=== PATIENT | male | born 2000 | race Caucasian/White ===

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

== ENCOUNTER → 2020-03-24 09:32 | Outpatient (CLI) | payer OTHER, SELFPAY | PROVIDERS: Family Provider Pediatrics; PCP Pediatrics; Visit Provider Physician Assistant | DX: R21 Rash and other nonspecific skin eruption (principal) | CPT/HCPCS: 87070; 87205 ==

== ENCOUNTER 2021-01-03 17:02 | Emergency (ER) | payer OTHER, SELFPAY ==
[2021-01-03 17:42] VITALS: BP 135/90; PULSE 92; RESP 18; TEMP 37.1; O2SAT 98; BMI 23.0
--- NOTE | 2021-01-03 18:08 | ED_ITS ---
HPI - Extremity Injury (Upper) General Chief Complaint: Extremity Injury, Upper Stated Complaint: right hand ring finger injury Time Seen by Provider: 01/03/21 18:02 History of Present Illness HPI narrative: 20M nonsmoker without significant medical history presents with an injury to his right hand earlier today. He was using a hand grinder at home and accidentally injured his finger. He was not wearing gloves. His tetanus is up-to-date. He denies any numbness or tingling or other injuries. He is otherwise well and free of complaint Related Data Previous Rx's Medication Instructions Recorded clotrimazole 1 % topical cream 1 applictn TOP BID 28 Days #30 gram 03/15/20 mupirocin 2 % topical ointment 1 applic TOP BID #30 gram 03/15/20 hydroxyzine HCl 25 mg tablet 25 mg PO Q6-8H PRN #20 tab 03/24/20 triamcinolone acetonide 0.1 % 1 applic TOPICAL TID #80 g 03/24/20 topical cream Allergies Allergy/AdvReac Type Severity Reaction Status Date / Time gentamicin Allergy Verified 01/03/21 17:41 Penicillins Allergy Verified 01/03/21 17:41 Review of Systems Review of Systems Narrative: GENERAL: Denies chills, fatigue, malaise, fever, sweats. HEENT: Denies sinus pain, ear pain, sore throat, difficulty swallowing, dizziness. RESPIRATORY: Denies dyspnea, cough, wheezing, hemoptysis, sputum. CARDIOVASCULAR: Denies chest pain, palpitations, orthopnea, edema, GASTROINTESTINAL: Denies nausea, vomiting, abdominal pain, diarrhea, constipation, melena. : Denies dysuria, frequency, incontinence, hematuria, urinary retention. MUSCULOSKELETAL: denies weakness, joint pain, or bony pain SKIN: See HPI NEUROLOGIC: Denies weakness, headache, numbness, change in speech, confusion, seizures, incoordination. PSYCHIATRIC: No concerning psychosocial issues. 12 point review of systems is negative except for those stated above Patient History Medical History No known health problems (09/10/11) Skin rash Social History Smoking Status: Never smoker Smoking Status: Never smoker Substance Use Type: does not use Exam Narrative Exam Narrative: GEN: AOx3 and in mild distress EYES: Pupils are equal, round, and reactive to light and accommodation. Extraoccular muscles are intact bilaterally. There is no subconjunctival hemorrhage or exudate. CHEST: Lungs are clear to auscultation bilaterally and free of wheezes, rales, or rhonchi. Heart rate is regular rhythm, there are no murmurs, clicks, rubs, or gallops. There is no chest wall tenderness. ABD: Abdomen is soft and nontender. There is no guarding or rebound. Bowel sounds are normal in all 4 quadrants. There is no mass or organomegaly. EXT: 1 cm deep laceration on the dorsal surface of the right 4th finger overlying the middle phalanx. This is viewed in a bloodless field and complete transection of extensor tendon is noted. Despite this injury he still has close to full strength with extension at the D IP, no sensory deficit is noted SKIN: Warm, pink, and dry. No erythema or rash Initial Vital Signs Initial Vital Signs: Vital Signs Temperature 98.7 F 01/03/21 17:42 Pulse Rate 92 H 01/03/21 17:42 Respiratory Rate 18 01/03/21 17:42 Blood Pressure 135/90 01/03/21 17:42 Pulse Oximetry 98 01/03/21 17:42 Procedures Laceration Repair Laceration 1: Site: hand Side (If applicable): right Size (cm): 1 Description: linear Depth: involves tendon Local Anesthetic: lidocaine 1% and with bicarb Amount of anesthesia used (mL): 4 Pre-repair: wound explored and irrigated extensively Skin layer closed with: nylon Size (cm): 5-0 Number of sutures: 3 Technique: simple, interrupted Orthopedic Splinting/Casting Injury #1: Side: right Upper Extremity Injury Location: finger Upper Extremity Immobilizer: aluminum form splint Post splinting neuro exam: intact Post splinting vascular exam: intact Placed by: Nursing Course Orders Ordered: Discontinued Medications Lidocaine/Sodium Bicarbonate (Lido 1%/Sod Bicarb 8.4% (10ml) 10 Ml Syringe) 10 ml INJ NOW ONE Stop: 01/03/21 18:15 Last Admin: 01/03/21 18:30 Dose: 10 ml Documented by: [email or web address] Consultations Consultation #1: Discussed with on-call orthopedics, Dr. Wyatt, who is in complete agreement with the plan to loosely suture, splint and have follow-up. Vital Signs Vital signs: Vital Signs - 8 hr 01/03/21 17:42 Temperature 98.7 F Pulse Rate 92 H Respiratory Rate 18 Blood Pressure 135/90 Pulse Oximetry 98 Discharge Plan Departure Patient Disposition: Home Clinical Impression: Tendon laceration Finger laceration Qualifiers: Encounter type: initial encounter Finger: ring finger Damage to nail status: without damage Foreign body presence: without foreign body Laterality: right Qualified Code(s): S61.214A - Laceration without foreign body of right ring finger without damage to nail, initial encounter Instructions: DI for Laceration Repair Activity Restrictions/Additional Instructions: *You have been diagnosed with [ right ring finger laceration with extensor tendon laceration] *What to do: *Please continue to take your regular medications as directed. [ x] New medication prescriptions sent to your pharmacy: [ [facility] in [place]] [ ] New medication written as a paper prescription [ ] No new medications given Please keep the wound clean and dry to the best of your ability. Please monitor for signs of infection such as redness to the skin or increasing pain. Have the sutures removed by your doctor in about 7 days. If you are unable to get into your doctor, we would be happy to remove the sutures in that same timeframe. As we discussed, please call [facility] on Tuesday morning and let them know that you were seen in the emergency department and we asked that he be seen in follow-up. I have already discussed your case with Dr. Wyatt who is their hand surgeon. *If you do not have a primary care provider please contact the [facility] Resource line at [phone]. They will ask some questions about your medical history and help get you set up with a doctor in the community. *Return to Emergency Department if you should have any new, worsening or concerning symptoms, such as [fever greater than 101 F, shaking chills, worsening pain, persistent vomiting or other bothersome symptoms] Prescriptions: No Action hydroxyzine HCl 25 mg tablet 25 mg PO Q6-8H PRN (Reason: itching) Qty: 20 RF: 0 triamcinolone acetonide 0.1 % cream 1 applic topical TID Qty: 80 RF: 0 clotrimazole 1 % cream 1 applictn TOP BID 28 Days Qty: 30 RF: 2 mupirocin 2 % ointment 1 applic TOP BID Qty: 30 RF: 2 Referrals: Kaiden Curiel MD [Primary Care Provider] - Teddy Wyatt MD [Physician] -
[2021-01-03] MEDS: LIDO 1%/SOD BICARB 8.4% (10ML) 10 ML SYRINGE INJ (18:30)
[2021-01-03 18:43] VITALS: BP 143/88; PULSE 85; O2SAT 98
== END 2021-01-03 19:03 | disposition home or self-care (01) ==
PROVIDERS: Emergency Provider Emergency Medicine; Family Provider Pediatrics; PCP Family Medicine
DX: S61.214A Laceration without foreign body of right ring finger without damage to nail, initial encounter (principal); W29.8XXA Contact with other powered hand tools and household machinery, initial encounter
CPT/HCPCS: 12041; 99283

== ENCOUNTER 2021-05-27 20:25 | Emergency (ER) | payer OTHER, SELFPAY ==
--- NOTE | 2021-05-27 20:38 | ED.URI ---
HPI - URI/Sore Throat General Chief Complaint: Upper Respiratory Symptoms Stated Complaint: thinks he has strep throat Time Seen by Provider: 05/27/21 20:30 History of Present Illness HPI Narrative: 21-year-old male nonsmoker presents with a chief complaint of concern for strep throat. He has had 2-3 days of worsening throat pain, swelling on the right side of his anterior neck, difficulty swallowing. He has had no runny nose or cough. He denies nausea, vomiting or diarrhea. Related Data Previous Rx's Medication Instructions Recorded clotrimazole 1 % topical cream 1 applictn TOP BID 28 Days #30 gram 03/15/20 mupirocin 2 % topical ointment 1 applic TOP BID #30 gram 03/15/20 hydroxyzine HCl 25 mg tablet 25 mg PO Q6-8H PRN #20 tab 03/24/20 triamcinolone acetonide 0.1 % 1 applic TOPICAL TID #80 g 03/24/20 topical cream cephalexin 500 mg capsule 500 mg PO BID #20 cap 05/27/21 Allergies Allergy/AdvReac Type Severity Reaction Status Date / Time gentamicin Allergy Verified 01/03/21 17:41 Penicillins Allergy Verified 01/03/21 17:41 Review of Systems Review of Systems Narrative: GENERAL: See HPI HEENT: See HPI RESPIRATORY: Denies dyspnea, cough, wheezing, hemoptysis, sputum. CARDIOVASCULAR: Denies chest pain, palpitations, orthopnea, edema, GASTROINTESTINAL: Denies nausea, vomiting, abdominal pain, diarrhea, constipation, melena. : Denies dysuria, frequency, incontinence, hematuria, urinary retention. MUSCULOSKELETAL: denies weakness, joint pain, or bony pain SKIN: Denies rash, skin lesions, or other NEUROLOGIC: Denies weakness, headache, numbness, change in speech, confusion, seizures, incoordination. PSYCHIATRIC: No concerning psychosocial issues. 12 point review of systems is negative except for those stated above Patient History Medical History No known health problems (09/10/11) Skin rash Social History Smoking Status: Never smoker Smoking Status: Never smoker Substance Use Type: does not use Exam Narrative Exam Narrative: GEN: AOx3 and in mild distress EYES: Pupils are equal, round, and reactive to light and accommodation. Extraoccular muscles are intact bilaterally. There is no subconjunctival hemorrhage or exudate. ENT: Tender right anterior cervical lymphadenopathy, tonsillar swelling bilaterally with pharyngeal erythema, no obvious exudate, no unilateral swelling to suggest peritonsillar abscess, no uvular pointing. Tolerating oral secretions without difficulty CHEST: Lungs are clear to auscultation bilaterally and free of wheezes, rales, or rhonchi. Heart rate is regular rhythm, there are no murmurs, clicks, rubs, or gallops. There is no chest wall tenderness. ABD: Abdomen is soft and nontender. There is no guarding or rebound. Bowel sounds are normal in all 4 quadrants. There is no mass or organomegaly. EXT: Full painless ROM of all extremities with no loss of sensation or strength. SKIN: Warm, pink, and dry. No erythema or rash Initial Vital Signs Initial Vital Signs: Vital Signs Temperature 98.9 F 05/27/21 20:43 Pulse Rate 88 05/27/21 20:43 Respiratory Rate 16 05/27/21 20:43 Blood Pressure 153/95 H 05/27/21 20:43 Pulse Oximetry 98 05/27/21 20:43 Course Orders Ordered: ED Orders 05/27/21 20:51 Throat Culture Stat Discontinued Medications Cefazolin Sodium (Cephalexin 250 Mg Prepack) 1 bottle MISC SEEINSTR ONE Stop: 05/27/21 21:04 Vital Signs Vital signs: Vital Signs - 8 hr 05/27/21 20:43 Temperature 98.9 F Pulse Rate 88 Respiratory Rate 16 Blood Pressure 153/95 H Pulse Oximetry 98 [facility] - URI/Sore Throat Lab Data Labs: Point of Care Testing Rapid Strep A Positive [facility] Narrative Medical decision making narrative: #66:? Appropriate Testing for Patients with Pharyngitis [ x] The patient has acute pharyngitis/tonsillitis. The patient was prescribed antibiotics today and a strep test or culture was performed today or in the last 3 days. [ ] The patient has acute pharyngitis/tonsillitis and was prescribed antibiotics today. A strep test or culture was not performed because the patient meets one of the following: [ ] Patient received a competing diagnosis. The patient?s competing diagnosis is [] (e.g. acute otitis media, chronic sinusitis, cellulitis, etc.) [ ] Patient is currently on antibiotics or has been in the last 30 days. [ ] Patient had a competing comorbid condition within the last 12 months. The patient?s comorbid condition is [] (e.g., tuberculosis, neutropenia, cystic fibrosis, chronic bronchitis, pulmonary edema, respiratory failure, rheumatoid lung disease) Discharge Plan Departure Patient Disposition: Home Clinical Impression: Strep pharyngitis Instructions: DI for Strep Throat Activity Restrictions/Additional Instructions: *You have been diagnosed with [streptococcal pharyngitis] *What to do: *Please continue to take your regular medications as directed. [x ] New medication prescriptions sent to your pharmacy: [ [facility]] [ ] New medication written as a paper prescription [ ] No new medications given *Please follow up with your primary care provider in 2-3 days, call for an appointment. Let them know you were seen in the Emergency Department and that we ask that you be seen in follow up. We will electronically transmit a record of today's note if your PCP is in our system *If you do not have a primary care provider please contact the [facility] Resource line at [phone]. They will ask some questions about your medical history and help get you set up with a doctor in the community. *Return to Emergency Department if you should have any new, worsening or concerning symptoms, such as [fever greater than 101 F, shaking chills, worsening pain, persistent vomiting or other bothersome symptoms] Prescriptions: New cephalexin 500 mg capsule 500 mg PO BID Qty: 20 0RF No Action hydroxyzine HCl 25 mg tablet 25 mg PO Q6-8H PRN (Reason: itching) Qty: 20 0RF triamcinolone acetonide 0.1 % cream 1 applic topical TID Qty: 80 0RF clotrimazole 1 % cream 1 applictn TOP BID 28 Days Qty: 30 2RF mupirocin 2 % ointment 1 applic TOP BID Qty: 30 2RF Referrals: Kaiden Curiel MD [Primary Care Provider] -
[2021-05-27 20:43] VITALS: BP 153/95; PULSE 88; RESP 16; TEMP 37.2; O2SAT 98; BMI 24.4
[2021-05-27] MEDS: cephALEXin 250 MG PREPACK 1 BOTTLE MISC (21:15)
== END 2021-05-27 21:22 | disposition home or self-care (01) ==
PROVIDERS: Emergency Provider Emergency Medicine; Family Provider Pediatrics; PCP Family Medicine
DX: J02.0 Streptococcal pharyngitis (principal)
CPT/HCPCS: 87070; 87147; 87880; 99282

== ENCOUNTER 2022-06-16 11:07 | Emergency (ER) | payer OTHER, SELFPAY ==
[2022-06-16 11:54] VITALS: BP 137/102; PULSE 75; RESP 16; TEMP 36.8; O2SAT 97; BMI 23.0
[2022-06-16] MEDS: LIDOCAINE 2% INJ SDV 5ML 5 ML INJ (15:28)
--- NOTE | 2022-06-16 15:32 | ED.WOUNDLAC ---
HPI - Wound/Laceration <RHONDA Pulido - Last Filed: 06/16/22 16:29> General Chief Complaint: Wound/Laceration Stated Complaint: bleeding top lip busted open Time Seen by Provider: 06/16/22 15:14 History of Present Illness HPI narrative: This is a 22-year-old male presents emergency department with a laceration of his lip from a pipe fitting that he accidentally struck on his face while he pulled it apart. He states that his last tetanus was within the last 5 years, denies any intraoral injury, his laceration is above his lip and does not cross vermilion border, right below his nares. He states it was bleeding for a little while and then stopped after some pressure. Has proximally 1.5 cm laceration which is linear, denies any tooth pain or loose tooth, denies any intraoral injury. Related Data Previous Rx's Medication Instructions Recorded clotrimazole 1 % topical cream 1 applictn topical BID 4 weeks #30 03/15/20 grams mupirocin 2 % topical ointment 1 applic topical BID #30 grams 03/15/20 hydroxyzine HCl 25 mg tablet 25 mg PO Q6-8H PRN itching #20 tabs 03/24/20 triamcinolone acetonide 0.1 % 1 applic topical TID #80 grams 03/24/20 topical cream cephalexin 500 mg capsule 500 mg PO BID #20 caps 05/27/21 Allergies Allergy/AdvReac Type Severity Reaction Status Date / Time gentamicin Allergy Verified 01/03/21 17:41 Penicillins Allergy Verified 01/03/21 17:41 Review of Systems <RHONDA Pulido - Last Filed: 06/16/22 16:29> Review of Systems ROS Unobtainable: All systems reviewed & are unremarkable except as noted in HPI and below Patient History <RHONDA Pulido - Last Filed: 06/16/22 16:29> Medical History No known health problems (09/10/11) Skin rash Social History Smoking Status: Never smoker Smoking Status: Never smoker Substance Use Type: does not use Exam <RHONDA Pulido - Last Filed: 06/16/22 16:29> Narrative Exam Narrative: Reviewed vitals signs and nursing notes. General: cooperative, comfortable, in no acute distress, well groomed HEENT: symmetrical facial expressions, moist mucous membranes, EOMI, Skin: brisk capillary refill, without pallor or erythema, linear laceration above his lip, does not cross the vermilion border proximally 1.5 cm without intra oral injury, loose or chipped teeth, or other injury. Initial Vital Signs Initial Vital Signs: Vital Signs Temperature 98.3 F 06/16/22 11:54 Pulse Rate 75 06/16/22 11:54 Respiratory Rate 16 06/16/22 11:54 Blood Pressure 137/102 H 06/16/22 11:54 Pulse Oximetry 97 06/16/22 11:54 Oxygen Delivery Method 06/16/22 11:54 <Randy Webster MD - Last Filed: 06/22/22 02:06> Initial Vital Signs Initial Vital Signs: Vital Signs Temperature 98.3 F 06/16/22 11:54 Pulse Rate 75 06/16/22 11:54 Respiratory Rate 16 06/16/22 11:54 Blood Pressure 137/102 H 06/16/22 11:54 Pulse Oximetry 97 06/16/22 11:54 Oxygen Delivery Method 06/16/22 11:54 Procedures <RHONDA Pulido - Last Filed: 06/16/22 16:29> Laceration Repair Laceration 1: Site: face Size (cm): 1.5 Description: linear Depth: simple, single layer Local Anesthetic: lidocaine 2% Amount of anesthesia used (mL): 1.5 Pre-repair: wound explored, irrigated extensively and deep structures intact Skin layer closed with: vicryl Skin layer suture size: 5-0 Number of sutures: 3 Technique: simple, interrupted Course <RHONDA Pulido - Last Filed: 06/16/22 16:29> Orders Ordered: Discontinued Medications Bacitracin (Bacitracin Oint 0.9 Gm Pckt) 1 applic TOP NOW ONE Stop: 06/16/22 15:15 Last Admin: 06/16/22 15:35 Dose: 1 applic Documented By: TASH Diphtheria/Tetanus/Acell Pertussis (Tet,Diph,Pertuss(Acell),Vac/Pf 0.5 Ml Syringe) 0.5 ml IM .ONCE ONE Stop: 06/16/22 15:15 Last Admin: 06/16/22 15:37 Dose: Not Given Documented By: TASH Lidocaine HCl (Lidocaine 2% Inj Mdv 20ml) 20 ml INJ INTRA-OP ONE Stop: 06/16/22 15:15 Last Admin: 06/16/22 15:30 Dose: Not Given Documented By: SIERRA Lidocaine HCl (Lidocaine 1% 20 Ml) 20 ml INJ INTRA-OP ONE Stop: 06/16/22 15:15 Last Admin: 06/16/22 15:30 Dose: Not Given Documented By: SIERRA Lidocaine HCl (Lidocaine 2% Inj Sdv 5ml) 5 ml INJ INTRA-OP ONE Stop: 06/16/22 15:28 Last Admin: 06/16/22 15:28 Dose: 5 ml Documented By: SIERRA Vital Signs Vital signs: Vital Signs - 8 hr 06/16/22 11:54 Temperature 98.3 F Pulse Rate 75 Respiratory Rate 16 Blood Pressure 137/102 H Pulse Oximetry 97 Oxygen Delivery Method Room Air <Randy Webster MD - Last Filed: 06/22/22 02:06> Orders Ordered: Discontinued Medications Bacitracin (Bacitracin Oint 0.9 Gm Pckt) 1 applic TOP NOW ONE Stop: 06/16/22 15:15 Last Admin: 06/16/22 15:35 Dose: 1 applic Documented By: TASH Diphtheria/Tetanus/Acell Pertussis (Tet,Diph,Pertuss(Acell),Vac/Pf 0.5 Ml Syringe) 0.5 ml IM .ONCE ONE Stop: 06/16/22 15:15 Last Admin: 06/16/22 15:37 Dose: Not Given Documented By: TASH Lidocaine HCl (Lidocaine 2% Inj Mdv 20ml) 20 ml INJ INTRA-OP ONE Stop: 06/16/22 15:15 Last Admin: 06/16/22 15:30 Dose: Not Given Documented By: SIERRA Lidocaine HCl (Lidocaine 1% 20 Ml) 20 ml INJ INTRA-OP ONE Stop: 06/16/22 15:15 Last Admin: 06/16/22 15:30 Dose: Not Given Documented By: SIERRA Lidocaine HCl (Lidocaine 2% Inj Sdv 5ml) 5 ml INJ INTRA-OP ONE Stop: 06/16/22 15:28 Last Admin: 06/16/22 15:28 Dose: 5 ml Documented By: SIERRA Vital Signs Vital signs: Vital Signs - 8 hr 06/16/22 11:54 Temperature 98.3 F Pulse Rate 75 Respiratory Rate 16 Blood Pressure 137/102 H Pulse Oximetry 97 Oxygen Delivery Method Room Air MDM - Wound/Laceration <Gaye Mckinney ROSIN BARREL FILLER - Last Filed: 06/16/22 16:29> [facility] Narrative Medical decision making narrative: Chief Complaint: Lip laceration This is a 22-year-old male presents emergency department with a laceration of his lip from a pipe fitting that he accidentally struck on his face while he pulled it apart. He states that his last tetanus was within the last 5 years, denies any intraoral injury, his laceration is above his lip and does not cross vermilion border, right below his nares. Differential diagnoses include but are not limited to: Skin laceration, dental injury, through and through laceration, concussion, head injury I have reviewed the patient's vital signs and nursing notes as well as prior records if available. I saw the patient, he has a laceration of his lip, does not have any bite pain or TMJ tenderness bilaterally, is without concussive symptoms, is alert and oriented x3, clear speech, tetanus is up-to-date in his not indicated, suture repair was completed with 5.0 Vicryl Rapide dissolvable sutures. He will return if he has symptoms of infection otherwise he will use topical antibiotic ointment and allow these to fall out. This did not happen at work and is not an L and I claim. Patient denied the need for pain medication, no evidence of vascular or dental injury. Patient's symptoms improved over duration of stay with above-stated therapies. Social considerations that may affect disposition: none Questions are addressed and there is agreement with the plan and for follow-up. Patient is appropriate for outpatient management. MIPS: This encounter doesn't have any diagnosis' associated with MIPS criteria. Discharge Plan Departure Patient Disposition: Home Clinical Impression: Laceration of lip Qualifiers: Encounter type: initial encounter Qualified Code(s): S01.511A - Laceration without foreign body of lip, initial encounter Instructions: DI for Laceration Repair, How to Care for Absorbable Sutures Activity Restrictions/Additional Instructions: *You have been diagnosed with a laceration above your lip approximally 1.5 cm. I used a dog volar suture so you do not need to return for suture removal. Please keep it covered with a little bit of antibiotic ointment and a Band-Aid much as possible. Use ibuprofen or Tylenol as needed for pain, cool compresses will help with the swelling initially go down over the next 24-48 hours. Sorry that it hurt you. You received a tetanus today, this will last the next 10 years. Thank you for your patients, I am sorry that it took so long. I wish you the best *What to do: *Please continue to take your regular medications as directed. [ ] New medication prescriptions sent to your pharmacy: [ ] [ ] New medication written as a paper prescription [x ] No new medications given *Please follow up with your primary care provider in 2-3 days, call for an appointment. Let them know you were seen in the Emergency Department and that we asked that you be seen for follow-up. We will electronically transmit a record of today's note if your PCP is in our system *If you do not have a primary care provider please contact [phone] to establish care with one of [facility] primary care providers. *Return to Emergency Department if you should have any new, worsening, or concerning symptoms, such as [fever greater than 101F, chills, worsening pain, persistent vomiting or other bothersome symptoms]. Prescriptions: No Action hydroxyzine HCl 25 mg tablet 25 mg PO Q6-8H PRN (Reason: itching) Qty: 20 0RF triamcinolone acetonide 0.1 % cream 1 applic topical TID Qty: 80 0RF clotrimazole 1 % cream 1 applictn TOP BID 28 Days Qty: 30 2RF mupirocin 2 % ointment 1 applic TOP BID Qty: 30 2RF cephalexin 500 mg capsule 500 mg PO BID Qty: 20 0RF Referrals: Kaiden Curiel MD [Primary Care Provider] - Stand Alone Forms: Patient Portal/API <Randy Webster MD - Last Filed: 06/22/22 02:06> [facility] ED [facility] Att[facility]: I was immediately available in the department for consultation. ?This documentation has been reviewed and I agree with assessment and plan. Supervised by Randy Webster MD
[2022-06-16] MEDS: BACITRACIN OINT 0.9 GM PCKT 1 APPLIC TOP (15:35)
[2022-06-16 16:32] VITALS: BP 127/87; PULSE 69; RESP 12; O2SAT 99
== END 2022-06-16 16:33 | disposition home or self-care (01) ==
PROVIDERS: Emergency Provider Nurse Practitioner Critical Care Medicine; Family Provider Pediatrics; PCP Family Medicine
DX: S01.511A Laceration without foreign body of lip, initial encounter (principal); W22.8XXA Striking against or struck by other objects, initial encounter
CPT/HCPCS: 12011; 99282; 99283; 90715

== ENCOUNTER 2022-12-15 22:51 | Emergency (ER) | payer OTHER, SELFPAY ==
[2022-12-15 23:10] VITALS: BP 181/121; PULSE 60; O2SAT 98
[2022-12-15 23:11] VITALS: BP 178/120; PULSE 57; O2SAT 98
[2022-12-15 23:14] VITALS: BP 178/120; PULSE 56; RESP 16; TEMP 36.8; O2SAT 98
--- NOTE | 2022-12-15 23:14 | ED.GENADULT ---
HPI - General Adult General Chief complaint: Abdominal Pain Stated complaint: abd pain won't go away Time Seen by Provider: 12/15/22 23:12 Source: patient Mode of arrival: Ambulatory Limitations: no limitations History of Present Illness HPI narrative: Patient is a 22-year-old male who is here for evaluation of approximately 48 hours of generalized abdominal discomfort. He is having some nausea but no vomiting. He states that he feels like he has to go to the bathroom but when he tries only a small amount of liquid stool comes out. No urinary symptoms. No testicular pain. No recent travel. No recent antibiotic use. No recent hiking. No fevers. No chest pain or shortness of breath. Related Data Previous Rx's Medication Instructions Recorded clotrimazole 1 % topical cream 1 applictn topical BID 4 weeks #30 03/15/20 grams mupirocin 2 % topical ointment 1 applic topical BID #30 grams 03/15/20 hydroxyzine HCl 25 mg tablet 25 mg PO Q6-8H PRN itching #20 tabs 03/24/20 triamcinolone acetonide 0.1 % 1 applic topical TID #80 grams 03/24/20 topical cream cephalexin 500 mg capsule 500 mg PO BID #20 caps 05/27/21 dicyclomine 10 mg capsule 10 mg PO BID PRN abdominal pain 12/16/22 #20 caps Allergies Allergy/AdvReac Type Severity Reaction Status Date / Time gentamicin Allergy Verified 01/03/21 17:41 Penicillins Allergy Verified 01/03/21 17:41 Review of Systems Constitutional Constitutional: Reports system reviewed and no additional complaints, except as documented Gastrointestinal Gastrointestinal: Reports system reviewed and no additional complaints, except as documented Genitourinary Genitourinary: Reports system reviewed and no additional complaints, except as documented Integumentary/Breasts Skin/Breast: Reports system reviewed and no additional complaints, except as documented Patient History Medical History No known health problems (09/10/11) Skin rash Social History Smoking Status: Never smoker Smoking Status: Never smoker Substance Use Type: does not use Exam Initial Vital Signs Initial Vital Signs: Vital Signs Pulse Rate 60 12/15/22 23:10 Blood Pressure 181/121 H 12/15/22 23:10 Pulse Oximetry 98 12/15/22 23:10 Const General: cooperative, comfortable and No ill appearing [facility] Head: normal to inspection and normocephalic GI Inspection: normal to inspection Palpation: soft, No firm and tender Skin General: no rashes or lesions noted Neuro General: patient alert, patient awake and moves all extremities Course Orders Ordered: ED Orders 12/15/22 23:15 CT abdomen pelvis w con Stat 12/15/22 23:22 Complete Blood Count AUTO DIFF Stat Comprehensive Metabolic Panel Stat Lipase Stat Discontinued Medications Sodium Chloride (Normal Saline 0.9%) 1,000 mls @ 1,000 mls/hr IV BOLUS ONE Stop: 12/16/22 00:13 Last Infusion: 12/16/22 00:15 Dose: 0 mls/hr Documented By: Admin: 12/15/22 23:31 Dose: 1,000 mls/hr Documented By: KAVITHA Vital Signs Vital signs: Vital Signs - 8 hr 12/15/22 23:14 12/15/22 23:10 12/15/22 23:10 Temperature 98.3 F Pulse Rate 56 L 60 Respiratory Rate 16 Blood Pressure 178/120 H 181/121 H Pulse Oximetry 98 98 Oxygen Delivery Method Room Air 12/15/22 23:11 12/15/22 23:11 12/15/22 23:30 Temperature Pulse Rate 57 L 68 Respiratory Rate Blood Pressure 178/120 H Pulse Oximetry 98 97 Oxygen Delivery Method 12/16/22 00:00 12/16/22 00:11 12/16/22 00:11 Temperature Pulse Rate 53 L 53 L Respiratory Rate Blood Pressure 175/104 H Pulse Oximetry 99 99 Oxygen Delivery Method Medical Decision Making Lab Data Lab results reviewed: Yes I reviewed the patient's lab results. 12/15/22 23:22 12/15/22 23:22 Labs: Lab Results 12/15/22 12/15/22 Range/Units 23:22 23:22 WBC 10.7 (4.5-11.0) X10^3/uL RBC 5.29 (4.5-5.9) X10^6/uL Hgb 16.2 (13.5-17.5) g/dL Hct 45.2 (41-53) % MCV 85.4 (80-100) fL MCH 30.6 (26-34) PG MCHC 35.8 (30-36) % RDW 13.4 (11.6-14.8) % Plt Count 272 (150-400) X10^3/uL Neut % (Auto) 71.2 (50-75) % Lymph % (Auto) 17.4 L (25-40) % [place] % (Auto) 9.0 (3-14) % Eos % (Auto) 2.1 (2-4) % Baso % (Auto) 0.3 (0-2) % Neut # (Auto) 7600 H (8813-8757) /uL Lymph # (Auto) 1900 (2393-8062) /uL [place] # (Auto) 1000 H (0-900) /uL Eos # (Auto) 200 (0-450) /uL Baso # (Auto) 0 (0-100) /uL Sodium 135 L (137-145) mmol/L Potassium 3.8 (3.4-5.1) mmol/L Chloride 99 (98-107) mmol/L Carbon Dioxide 27 (22-32) mmol/L BUN 12 (9-20) mg/dL Creatinine 0.87 (0.66-1.25) mg/dL Estimated GFR > 60 (>60) mL/min BUN/Creatinine Ratio 13.8 (6-22) Glucose 112 H (70-100) mg/dL Calcium 9.1 (8.4-10.2) mg/dL Total Bilirubin 2.2 H (0.2-1.3) mg/dL AST 23 (17-59) IU/L ALT 25 (<50) IU/L Alkaline Phosphatase 55 (38-126) U/L Total Protein 8.0 (6.3-8.2) g/dL Albumin 4.5 (3.5-5.0) g/dL Globulin 3.5 (1.7-4.1) g/dL Albumin/Globulin Ratio 1.3 (1.0-2.8) Lipase 20 L (23-300) U/L Imaging Data CT scan - abdomen/pelvis: Radiologist's Impression: PROCEDURE:? CT ABDOMEN PELVIS W CON ? INDICATIONS:? Generalized, lower abdominal pain ? TECHNIQUE:? After the administration of IV contrast, axial sections were acquired from the lung bases to the pubic symphysis.? Coronal and sagittal reformats were performed.? For radiation dose reduction, the following was used:? automated exposure control, adjustment of mA and/or kV according to patient size. ? COMPARISON:? None. ? FINDINGS:? Image quality:? Excellent.? ? Lung bases:? Unremarkable.? ? Heart:? Heart is normal in size. ? ? ABDOMEN: Liver:? No mass lesion. Gallbladder:? Within normal limits without calcified gallstones.? ? Biliary ducts:? No biliary ductal dilatation.? ? Pancreas:? Unremarkable.? ? Spleen:? Normal in size.? ? Adrenal Glands:? No adrenal nodules.? ? Kidneys and Ureters:? No hydronephrosis.? ? ? Stomach and Bowel:? Stomach and small bowel loops are normal in caliber and wall thickness.? The appendix appears within normal limits.? There is marked segmental colonic wall thickening involving the ascending and transverse colon as well as milder wall thickening involving the descending colon.? Associated pericolonic fat stranding and fluid are demonstrated.? The findings are consistent with a colitis. Peritoneum:? There is a small amount of intraperitoneal free fluid in the right paracolic gutter and pelvis.? No free air.? ? Ventral Wall: ? No hernia.? Abdominal Nodes:? No retroperitoneal or mesenteric adenopathy by size criteria.? Vessels:? Aorta and inferior vena cava are normal in size.? ? PELVIS: Pelvic Organs:? Unremarkable.? ? Bladder:? Unremarkable.? ? Pelvic Nodes: No enlarged lymph nodes.? Miscellaneous: No inguinal hernias are seen. ? ? ? Bones:? Visualized osseous structures demonstrate no suspicious focal lesions. ? IMPRESSION:? ? 1. Marked segmental colitis of the ascending and transverse colon as well as mild involvement of the descending colon.? The findings are compatible with an infectious or inflammatory colitis. ? 2. Small amount of intraperitoneal free fluid is likely reactive. MDM Narrative Medical decision making narrative: Patient does have a relatively benign abdominal exam. His labs are unremarkable. CT scan does show colitis. He is not having any rectal bleeding. He is afebrile. There was no signs of an emergent surgical condition. No recent travel. No recent antibiotics. No indication for antibiotics from the workup today. I suspect that his symptoms are going to improve with time. Will sent home with medications to try to help his symptoms. He was given return precautions. He expressed understanding and agreement. Discharge Plan Departure Patient Disposition: Home Clinical Impression: Colitis Instructions: Acute Abdominal Pain Activity Restrictions/Additional Instructions: You can use the medications that you were given this evening as needed. Be sure that you were increasing your fluid intake. Contact your primary doctor for a follow-up. Return to the emergency department for new or worsening symptoms. Prescriptions: New dicyclomine 10 mg capsule 10 mg PO BID PRN (Reason: abdominal pain) Qty: 20 0RF No Action hydroxyzine HCl 25 mg tablet 25 mg PO Q6-8H PRN (Reason: itching) Qty: 20 0RF triamcinolone acetonide 0.1 % cream 1 applic topical TID Qty: 80 0RF clotrimazole 1 % cream 1 applictn TOP BID 28 Days Qty: 30 2RF mupirocin 2 % ointment 1 applic TOP BID Qty: 30 2RF cephalexin 500 mg capsule 500 mg PO BID Qty: 20 0RF Referrals: Kaiden Curiel MD [Primary Care Provider] - Stand Alone Forms: Patient Portal/API
--- NOTE | 2022-12-15 23:15 | DI.CT.S_ITS ---
PROCEDURE: CT ABDOMEN PELVIS W CON INDICATIONS: Generalized, lower abdominal pain TECHNIQUE: After the administration of IV contrast, axial sections were acquired from the lung bases to the pubic symphysis. Coronal and sagittal reformats were performed. For radiation dose reduction, the following was used: automated exposure control, adjustment of mA and/or kV according to patient size. COMPARISON: None. FINDINGS: Image quality: Excellent. Lung bases: Unremarkable. Heart: Heart is normal in size. ABDOMEN: Liver: No mass lesion. Gallbladder: Within normal limits without calcified gallstones. Biliary ducts: No biliary ductal dilatation. Pancreas: Unremarkable. Spleen: Normal in size. Adrenal Glands: No adrenal nodules. Kidneys and Ureters: No hydronephrosis. Stomach and Bowel: Stomach and small bowel loops are normal in caliber and wall thickness. The appendix appears within normal limits. There is marked segmental colonic wall thickening involving the ascending and transverse colon as well as milder wall thickening involving the descending colon. Associated pericolonic fat stranding and fluid are demonstrated. The findings are consistent with a colitis. Peritoneum: There is a small amount of intraperitoneal free fluid in the right paracolic gutter and pelvis. No free air. Ventral Wall: No hernia. Abdominal Nodes: No retroperitoneal or mesenteric adenopathy by size criteria. Vessels: Aorta and inferior vena cava are normal in size. PELVIS: Pelvic Organs: Unremarkable. Bladder: Unremarkable. Pelvic Nodes: No enlarged lymph nodes. Miscellaneous: No inguinal hernias are seen. Bones: Visualized osseous structures demonstrate no suspicious focal lesions. IMPRESSION: 1. Marked segmental colitis of the ascending and transverse colon as well as mild involvement of the descending colon. The findings are compatible with an infectious or inflammatory colitis. 2. Small amount of intraperitoneal free fluid is likely reactive. Dictated by: Harsh Carrasco M.D. on 12/16/2022 at 0:14 Approved by: Harsh Carrasco M.D. on 12/16/2022 at 0:28
[2022-12-15 23:30] VITALS: PULSE 68; O2SAT 97
[2022-12-15] MEDS: SODIUM CHLORIDE 0.9% 1,000 ML 1000 ML IV (23:31)
[2022-12-15 23:41] LABS: Alanine Aminotransferase 25 IU/L (<50); Albumin 4.5 g/dL (3.5-5.0); Albumin Globulin Ratio 1.3 (1.0-2.8); Alkaline Phosphatase 55 U/L (38-126); Aspartate Aminotransferase 23 IU/L (17-59); BUN Creatinine Ratio 13.8 (6-22); Bilirubin Total 2.2 mg/dL (0.2-1.3); Blood Urea Nitrogen 12 mg/dL (9-20); Calcium 9.1 mg/dL (8.4-10.2); Carbon Dioxide 27 mmol/L (22-32); Chloride 99 mmol/L (98-107); Estimated Glomerular Filt Rate > 60 mL/min (>60); Globulin 3.5 g/dL (1.7-4.1); Glucose 112 mg/dL (70-100); HEMOLYSIS < 15 (0-50); Lipase 20 U/L (23-300); Potassium 3.8 mmol/L (3.4-5.1); Sodium 135 mmol/L (137-145)
[2022-12-15 23:51] LABS: Add Manual Diff / Slide Review NO; Basophils Absolute Auto 0 /uL (0-100); Basophils Percent Auto 0.3 % (0-2); Eosinophils Absolute Auto 200 /uL (0-450); Eosinophils Percent Auto 2.1 % (2-4); Hematocrit 45.2 % (41-53); Hemoglobin 16.2 g/dL (13.5-17.5); Lymphocytes Absolute Auto 1900 /uL (1100-4500); Lymphocytes Percent Auto 17.4 % (25-40); Mean Corpuscular HGB Conc 35.8 % (30-36); Mean Corpuscular Hemoglobin 30.6 PG (26-34); Mean Corpuscular Volume 85.4 fL (80-100); Monocytes Absolute Auto 1000 /uL (0-900); Neutrophils Absolute Auto 7600 /uL (1500-7000); Neutrophils Percent Auto 71.2 % (50-75); Platelet Count 272 X10^3/uL (150-400); Red Blood Cell Count 5.29 X10^6/uL (4.5-5.9); Red Cell Distribution Width 13.4 % (11.6-14.8); White Blood Cell Count 10.7 X10^3/uL (4.5-11.0)
[2022-12-16] VITALS: PULSE 53; O2SAT 99
[2022-12-16 00:11] VITALS: BP 175/104; PULSE 53; O2SAT 99
[2022-12-16 00:30] VITALS: BP 159/99; PULSE 55; O2SAT 99
[2022-12-16 01:00] VITALS: PULSE 53; O2SAT 100
[2022-12-16] MEDS: DICYCLOMINE 10 MG CAPSULE 20 MG PO (01:00)
[2022-12-16] MEDS: ONDANSETRON 4 MG ODT PREPACK 1 BOTTLE MISC (01:06)
== END 2022-12-16 01:05 | disposition home or self-care (01) ==
PROVIDERS: Emergency Provider Emergency Medicine; Family Provider Pediatrics; PCP Family Medicine
DX: K52.9 Noninfective gastroenteritis and colitis, unspecified (principal); R11.0 Nausea
CPT/HCPCS: 36415; 74177; 80053; 83690; 85025; 96360; 99284; Q9967